=== PATIENT | female | born 1995 | race Two or more races ===

== ENCOUNTER 2023-07-29 12:58 | Emergency (ER) | payer MEDICAID ==
[~2023-07-29] VITALS: Ht 160 cm; Wt 68.2 kg
[2023-07-29] MEDS: famotidine/PF 10 mg/ml inj IV ONE (13:30)
[2023-07-29] MEDS: methylPREDNISolone sod succ 125mg/2ml vial IV ONE (13:33)
[2023-07-29 15:02] VITALS: BP 144/84; PULSE 100; RESP 16; TEMP 98.6; O2SAT 100
== END 2023-07-29 15:03 | disposition home or self-care (01) ==
LOC: ER 12:59
DX: Z71.1 Person with feared health complaint in whom no diagnosis is made (principal); R06.02 Shortness of breath; R11.0 Nausea; Z88.8 Allergy status to other drugs, medicaments and biological substances
CPT/HCPCS: 96374; 99283; J3490; J2919